=== PATIENT | female | born 1940 | race Caucasian/White ===

== ENCOUNTER 2019-03-30 12:01 | Emergency (ER) | payer OTHER ==
[2019-03-30] MEDS ORDERED: DIAZEPAM 2 MG TABLET ONE (13:02)
[2019-03-30] MEDS ORDERED: NA CHLORIDE 0.9% 1,000 ML ONE (13:02)
--- NOTE | 2019-03-30 13:03 | RAD REPORT ---
EXAM DESCRIPTION: CT - CTHCSPWOC - 03/30/2019 12:49 pm CLINICAL HISTORY: Fall, head and neck trauma COMPARISON: None. TECHNIQUE: Axial 5 mm thick images of the head were obtained. Axial 2 mm thick images of the cervic al spine were obtained with sagittal and coronal reconstruction images generated and reviewed. All CT scans are performed using dose optimization technique as appropriate and may include automated exposure control or mA/KV adjustment according to patient size. FINDINGS: No intracranial hemorrhage, mass, edema or acute intracranial finding. No suspicion for acute infarct ion. No extra-axial fluid collections. Mastoid air cells and paranasal sinuses are clear. No globe or orbit abnormality seen. Mild atrophy and chronic ischemic changes are present. Ventricles are normal . Cervical body height and alignment are normal. Significant C4-5 and mild C5-6 disc space narrowing pr esent. Bony foraminal encroachment present at C4-5 and C5-6. 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 No fracture or acute bony abnormality. Central canal det ail is inherently limited. No paraspinal mass or hematoma. Degenerative changes are present at each TM joint. No foreign body s een in the soft tissues. IMPRESSION: Mild atrophy and chronic ischemic change with no acute intracranial finding. Cervical spine degenerative change with no acute finding. Negative CT cervical spine examination for acute or significant finding.
[2019-03-30 13:24] LABS: Absolute Lymphocytes (CBC) 0.8 K/uL (0.7-4.9); Basophils % 0.5 % (0-1.3); Hematocrit 43.6 % (36.0-45.0); Lymphocytes % 18.8 % (15.3-44.8); MPV 7.8 fL (7.6-11.3); RBC Red Blood Cell Count 5.08 M/uL (3.86-4.86)
[2019-03-30 13:30] LABS: Protime INR 1.04
[2019-03-30 13:42] LABS: ALT/SGPT 19 U/L (12-78); AST/SGOT 20 U/L (15-37); Albumin 3.4 g/dL (3.4-5.0); Alkaline Phosphatase 84 U/L (45-117); BUN Blood Urea Nitrogen 10 mg/dL (7-18); Bicarbonate 29 mmol/L (21-32); Bilirubin Direct 0.1 mg/dL (0-0.2); Bilirubin Total 0.3 mg/dL (0.2-1.0); Glucose Level 108 mg/dL (74-106); Magnesium 2.1 mg/dL (1.8-2.4); NT PRO-BNP 124 pg/mL (<450); Potassium 3.9 mmol/L (3.5-5.1); Protein, Total 6.9 g/dL (6.4-8.2); Sodium Level 141 mmol/L (136-145); Troponin (Emerg Dept Use Only) < 0.02 ng/mL (0.0-0.045)
--- NOTE | 2019-03-30 14:11 | RAD REPORT ---
EXAM DESCRIPTION: RAD - Chest Single View - 03/30/2019 12:45 pm CLINICAL HISTORY: Dizziness, cough, shortness of breath COMPARISON: January 2012 TECHNIQUE: AP portable chest image was obtained 1242 hours . FINDINGS: Chronic interstitial lung disease is present. This is increased in prominence from the com parison. This could be interstitial edema, infiltrate, progressive fibrosis or a combination. Patchy left base opacification is present with a suspected small left pleural effusion. Heart and vasculatur e are normal. No pneumothorax. No acute bony abnormality seen. No acute aortic finding. Densely calci fied breast implant capsules are noted. IMPRESSION: Increased interstitial opacification compared to 2012. This could be progressive fibrosi s, interstitial edema or possibly a mild interstitial infiltrate. Focally more prominent left base opacification and suspected small left pleural effusion.
[2019-03-30] MEDS ORDERED: TETANUS & DIPHTHERIA TOX,ADULT 0.5 ML VIAL ONE (14:33)
--- NOTE | 2019-03-30 14:33 | ER ---
Nurse's Notes [facility] Name: Josselin Martinez Age: 78 yrs Sex: Female : 1940 Arrival Date: 03/30/2019 Time: 12:05 Bed 14 Private MD: None, None Diagnosis: Benign paroxysmal vertigo;Abrasion of scalp;Fall on same level from slipping, tripping and stumbling;Superficial injury of head;Otalgia Presentation: 03/30 12:05 Presenting complaint: Patient states: Last Monday was dizzy and was dx with double ear jl7 infection at [facility]; slipped 2 days and hit head on the ground and reports a metal antoine punctured the right side of scalp, denies LOC, pt states "I cleaned the blood up, put ice on it and went back to work." Small punture injury noted to right side of scalp. Pt states "None of the medications given from [facility] are working, I still feel bad." Reports cough and sore throat and mild dizziness. Transition of care: patient was not received from another setting of care. Onset of symptoms was March 25, 2019. Risk Assessment: Do you want to hurt yourself or someone else? Patient reports no desire to harm self or others. Initial Sepsis Screen: Does the patient meet any 2 criteria? No. Patient's initial sepsis screen is negative. Does the patient have a suspected source of infection? No. Patient's initial sepsis screen is negative. Care prior to arrival: None. 12:05 Method Of Arrival: Ambulatory jl7 12:05 Acuity: CASIE 3 jl7 Triage Assessment: 12:15 General: Appears in no apparent distress. uncomfortable, Behavior is calm, cooperative, jl7 appropriate for age. Pain: Complains of pain in throat Pain currently is 8 out of 10 on a pain scale. Historical: - Allergies: 12:15 Codeine; jl7 - Home Meds: 12:15 None [Active]; jl7 - PMHx: 12:15 None; jl7 - PSHx: 12:15 Hernia repair; Bladder suspension; breast implants; Hysterectomy; jl7 - Immunization history:: Adult Immunizations unknown, Last tetanus immunization: unknown, Pneumococcal vaccine is up to date, Flu vaccine is up to date. - Social history:: Smoking status: Patient/guardian denies using tobacco. - Ebola Screening: : No symptoms or risks identified at this time. Screenin:15 Abuse screen: Denies threats or abuse. Denies injuries from another. Nutritional bp screening: No deficits noted. Tuberculosis screening: No symptoms or risk factors identified. Fall Risk None identified. Assessment: 12:15 General: SEE TRIAGE NOTE. bp 13:15 Reassessment: ALL CURRENT ORDERS COMPLETED, RESULTS PENDING. bp Vital Signs: 12:15 BP 127 / 67; Pulse 107; Resp 19 S; Temp 99.1(O); Pulse Ox 95% on R/A; Weight 49.9 kg jl7 (R); Height 5 ft. (152.40 cm) (R); Pain 8/10; 13:15 BP 124 / 68; Pulse 99; Resp 16; Pulse Ox 97% ; bp 14:39 BP 125 / 73; Pulse 99; Resp 17; Temp 98; Pulse Ox 99% ; bp 12:15 Body Mass Index 21.48 (49.90 kg, 152.40 cm) jl7 ED Course: 12:05 Patient arrived in ED. mr 12:05 None, None is Private Physician. mr 12:13 Magdi Fisher, ZOILA is PHCP. pm1 12:13 Tre Maya MD is Attending Physician. pm1 12:15 Triage completed. jl7 12:15 Arm band placed on right wrist. jl7 12:15 Patient has correct armband on for positive identification. Bed in low position. Call bp light in reach. Side rails up X2. Adult w/ patient. 12:18 Reji Russ, RN is Primary Nurse. bp 12:40 XRAY Chest (1 view) Sent. bp 12:43 XRAY Chest (1 view) In Process Unspecified. EDMS 12:46 CT completed. Patient tolerated procedure well. Patient moved back from CT. bq 12:50 CT Head C Spine In Process Unspecified. EDMS 13:10 Inserted saline lock: 22 gauge in right forearm, using aseptic technique. Blood bp collected. 14:50 No provider procedures requiring assistance completed. IV discontinued, intact, bp bleeding controlled, No redness/swelling at site. Pressure dressing applied. 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 Exp: bp 04/11/2021. Lot #: [id number]. } Route: IM; Site: right deltoid; 14:35 Follow up: Response: No adverse reaction bp Intake: 14:36 IV: 1000ml; Total: 1000ml. bp Outcome: 14:32 Discharge ordered by MD. pm1 14:50 Discharged to home ambulatory, with family. bp 14:50 Condition: stable 14:50 Discharge instructions given to patient, family, Instructed on discharge instructions, follow up and referral plans. medication usage, Demonstrated understanding of instructions, follow-up care, medications, Prescriptions given X 1. 14:51 Patient left the ED. bp Signatures: Dispatcher [employer] EDHI Maria Victoria Corona Betty bq Marinas, Patrick, ZOILA RESTAURANT FRONT MANAGER pm1 Mary Lou Domingo, JUDY RN jl7 Reji Russ RN RN bp
--- NOTE | 2019-03-30 14:34 | EDPHYS ---
Physician Documentation [facility] Name: Josselin Martinez Age: 78 yrs Sex: Female : 1940 Arrival Date: 03/30/2019 Time: 12:05 Bed 14 Private MD: None, None ED Physician Tre Maya HPI: 03/30 12:49 This 78 yrs old Female presents to ER via Ambulatory with complaints of Fall pm1 Injury, Head Injury-Adult, Ear Pain, Sore Throat. 12:49 Patient was seen at [place] [facility] on 03/24 with bilateral ear pain, sore throat and pm1 dizziness. Was diagnosed with bilateral ER infection and vertigo. Prescribed Augmentin, meclizine, and zofran. 12:49 Details of fall: The patient fell from an upright position, while standing, and struck pm1 the metal cage of the propane tank container. occurred 2 days ago and resulted in abrasion to the top of her scalp on the right side. Patient without LOC, headache, neck pain. Patient reports she fell due to dizziness from vertigo. her vertigo, sensation of spinning has improved with meclizine, but has not resolved completely. . Historical: - Allergies: 12:15 Codeine; jl7 - Home Meds: 12:15 None [Active]; jl7 - PMHx: 12:15 None; jl7 - PSHx: 12:15 Hernia repair; Bladder suspension; breast implants; Hysterectomy; jl7 - Immunization history:: Adult Immunizations unknown, Last tetanus immunization: unknown, Pneumococcal vaccine is up to date, Flu vaccine is up to date. - Social history:: Smoking status: Patient/guardian denies using tobacco. - Ebola Screening: : No symptoms or risks identified at this time. ROS: 12:49 Constitutional: Negative for fever, chills, and weight loss, Eyes: Negative for injury, pm1 pain, redness, and discharge, Neck: Negative for injury, pain, and swelling, Cardiovascular: Negative for chest pain, palpitations, and edema. 12:49 Respiratory: Negative for shortness of breath, cough, wheezing, and pleuritic chest pain, Abdomen/GI: Negative for abdominal pain, nausea, vomiting, diarrhea, and constipation. 12:49 Back: Negative for injury and pain, MS/Extremity: Negative for injury and deformity, Skin: Negative for injury, rash, and discoloration, Neuro: Negative for headache, weakness, numbness, tingling, and seizure. 12:49 ENT: Positive for ear pain, sore throat, sinus drainage and post nasal drip, Negative for drainage from ear(s), difficulty swallowing, difficulty handling secretions. 12:49 Neuro: Positive for dizziness. Exam: 12:49 Constitutional: This is a well developed, well nourished patient who is awake, alert, pm1 and in no acute distress. Eyes: Pupils equal round and reactive to light, extra-ocular motions intact. Lids and lashes normal. Conjunctiva and sclera are non-icteric and not injected. Cornea within normal limits. Periorbital areas with no swelling, redness, or edema. ENT: Nares patent. No nasal discharge, no septal abnormalities noted. Tympanic membranes are normal and external auditory canals are clear. Oropharynx with no redness, swelling, or masses, exudates, or evidence of obstruction, uvula midline. Mucous membranes moist. Neck: Trachea midline, no thyromegaly or masses palpated, and no cervical lymphadenopathy. Supple, full range of motion without nuchal rigidity, or vertebral point tenderness. No Meningismus. Chest/axilla: Normal chest wall appearance and motion. Nontender with no deformity. No lesions are appreciated. 12:49 Cardiovascular: Regular rate and rhythm with a normal S1 and S2. No gallops, murmurs, or rubs. Normal PMI, no JVD. No pulse deficits. Respiratory: Lungs have equal breath sounds bilaterally, clear to auscultation and percussion. No rales, rhonchi or wheezes noted. No increased work of breathing, no retractions or nasal flaring. Abdomen/GI: Soft, non-tender, with normal bowel sounds. No distension or tympany. No guarding or rebound. No evidence of tenderness throughout. Back: No spinal tenderness. No costovertebral tenderness. Full range of motion. Skin: Warm, dry with normal turgor. Normal color with no rashes, no lesions, and no evidence of cellulitis. MS/ Extremity: Pulses equal, no cyanosis. Neurovascular intact. Full, normal range of motion. 12:49 Head/face: Noted is no obvious of injury or deformity except abrasion(s), of the small abrasion to scalp on the top of her head. 12:49 Neuro: Orientation: is normal, Motor: is normal, moves all fours, Sensation: is normal, no obvious gross deficits. Vital Signs: 12:15 BP 127 / 67; Pulse 107; Resp 19 S; Temp 99.1(O); Pulse Ox 95% on R/A; Weight 49.9 kg jl7 (R); Height 5 ft. (152.40 cm) (R); Pain 8/10; 13:15 BP 124 / 68; Pulse 99; Resp 16; Pulse Ox 97% ; bp 14:39 BP 125 / 73; Pulse 99; Resp 17; Temp 98; Pulse Ox 99% ; bp 12:15 Body Mass Index 21.48 (49.90 kg, 152.40 cm) jl7 MDM: 12:22 Patient medically screened. ly 14:14 Data reviewed: vital signs. Data interpreted: Pulse oximetry: on room air is 97 %. pm1 Interpretation: normal. 14:30 Counseling: I had a detailed discussion with the patient and/or guardian regarding: the pm1 historical points, exam findings, and any diagnostic results supporting the discharge/admit diagnosis, lab results, radiology results, the need for outpatient follow up, to return to the emergency department if symptoms worsen or persist or if there are any questions or concerns that arise at home. 14:30 ED course: Patient feeling better with Valium for her vertigo. Will discharge to home pm1 with a prescription. Advised to continue taking Augmentin as directed and Meclizine and Zofran PRN. 03/30 12:34 Order name: Basic Metabolic Panel; Complete Time: 13:46 pm03/30 12:34 Order name: CBC with Diff; Complete Time: 13:29 pm03/30 12:34 Order name: LFT's; Complete Time: 13:46 pm03/30 12:34 Order name: Magnesium; Complete Time: 13:46 pm03/30 12:34 Order name: NT PRO-BNP; Complete Time: 13:46 pm03/30 12:34 Order name: PT-INR; Complete Time: 13:46 pm1 03/30 12:34 Order name: CT Head C Spine; Complete Time: 13:05 pm03/30 12:34 Order name: Troponin (emerg Dept Use Only); Complete Time: 13:46 pm1 03/30 12:34 Order name: XRAY Chest (1 view); Complete Time: 14:12 pm1 03/30 12:34 Order name: EKG; Complete Time: 12:35 pm1 03/30 12:34 Order name: Cardiac monitoring; Complete Time: 12:41 pm1 03/30 12:34 Order name: EKG - Nurse/Tech; Complete Time: 13:22 pm1 03/30 12:34 Order name: IV Saline Lock; Complete Time: 13:17 pm1 03/30 12:34 Order name: Labs collected and sent; Complete Time: 13:17 pm1 03/30 12:34 Order name: O2 Per Protocol; Complete Time: 12:41 pm1 03/30 12:34 Order name: O2 Sat Monitoring; Complete Time: 12:41 pm1 Administered Medications: 12:45 Drug: Valium 2 mg Route: PO; bp 13:48 Follow up: Response: Marked relief of symptoms bp 13:10 Drug: NS 0.9% 1000 ml Route: IV; Rate: 1000 ml; Site: right forearm; bp 14:36 Follow up: IV Status: Completed infusion; IV Intake: 1000ml bp 14:00 Drug: Tetanus-Diphtheria Toxoid Adult 0.5 ml {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 Exp: bp 04/11/2021. Lot #: [id number]. } Route: IM; Site: right deltoid; 14:35 Follow up: Response: No adverse reaction bp Disposition: 03/30/19 14:32 Discharged to Home. Impression: Benign paroxysmal vertigo, Abrasion of scalp, Fall on same level from slipping, tripping and stumbling, Superficial injury of head, Otalgia. - Condition is Stable. - Discharge Instructions: Abrasion, Benign Positional Vertigo, Head Injury, Adult, Fall Prevention in the Home. - Prescriptions for Valium 2 mg Oral Tablet - take 1 tablet by ORAL route every 8 hours As needed; 20 tablet. - Medication Reconciliation Form, Thank You Letter, Antibiotic Education, Prescription Opioid Use form. - Follow up: Emergency Department; When: As needed; Reason: Worsening of condition. Follow up: Private Physician; When: 2 - 3 days; Reason: Recheck today's complaints, Continuance of care, Re-evaluation by your physician. - Problem is new. - Symptoms have improved. Addendum: 04/01/2019 09:27 Co-signature as Attending Physician, Tre Maya MD I agree with the assessment and c martin plan of care. Signatures: Dispatcher [employer] EDMS Tre Maya MD MD cha Marinas, Patrick, CERTIFIED NEURODIAGNOSTIC TECHNOLOGIST CERTIFIED NEURODIAGNOSTIC TECHNOLOGIST pm1 Mary Lou Domingo, RN RN jl7 Reji Russ RN RN bp Corrections: (The following items were deleted from the chart) 03/30 14:51 14:32 03/30/2019 14:32 Discharged to Home. Impression: Benign paroxysmal vertigo; bp Abrasion of scalp; Fall on same level from slipping, tripping and stumbling; Superficial injury of head; Otalgia. Condition is Stable. Forms are Medication Reconciliation Form, Thank You Letter, Antibiotic Education, Prescription Opioid Use. Follow up: Emergency Department; When: As needed; Reason: Worsening of condition. Follow up: Private Physician; When: 2 - 3 days; Reason: Recheck today's complaints, Continuance of care, Re-evaluation by your physician. Problem is new. Symptoms have improved. pm1
[2019-03-30 15:01] VITALS: BP 125/73; TEMP 98; O2SAT 99
--- NOTE | 2019-04-02 16:45 | EKG ---
Test Date: 2018-03-30 Test Time: 13:27:01 Biotechnologist: JASS MEASUREMENT RESULTS: Intervals: Rate: 88 IA: 126 QRSD: 78 QT: 330 QTc: 399 [place]: P: 52 IA: 126 QRS: 1 T: 46 INTERPRETIVE STATEMENTS: Normal sinus rhythm Normal ECG Cardioserver Error - Incorrect date on EKG This EKG was performed on 03-30-2019 Compared to ECG 11/19/2014 17:46:12 No significant changes Electronically Signed On 04-02-19 16:41:47 PROGRAM SERVICES PLANNER by Jerrod Chacko
== END 2019-03-30 14:51 | disposition home or self-care (01) ==
LOC: ER 12:01
DX: S00.90XA Unspecified superficial injury of unspecified part of head, initial encounter (principal); S00.01XA Abrasion of scalp, initial encounter; H81.10 Benign paroxysmal vertigo, unspecified ear; H92.09 Otalgia, unspecified ear; W01.198A Fall on same level from slipping, tripping and stumbling with subsequent striking against other object, initial encounter; Y93.9 Activity, unspecified
CPT/HCPCS: 93005; 85025; 80048; 36415; 83735; 85610; 80076; 84484; 83880; 70450; 72125; 71045; 90471; 90714; 96360; 99284; J7030

== ENCOUNTER 2024-06-19 19:29 | Emergency (ER) | payer OTHER ==
--- OUTSIDE RECORDS SUMMARY | 2024-06-19 19:33 | XMS REPORT | Continuity of Care Document ---
Author Name Unknown Address [address] [place] [address] [facility] [place] Address [address] [place] [address] Care Team Providers Care Maritime Officer Name Role Phone BRENDA STANLEY Primary Care Physician Unavailab le RADIOLOGY Attending Clinician Unavailable Radiology Attending Clinician Unavailable Doctor Unassigned, [place] Attending Clinician U Nura Son MD Attending Clinician [phone] NURA CAPONE Attending Clinician UnavailZULEMA Garcia Admitting Clinician Unavailadeel e Payers Payer Name Policy Type Policy Number Effective Date Expirati on Date Source [facility] [id number] 2019 00:00:00 Allergies, Adverse Reactions, Alerts Allergy Name Allergy Type Status Severity Reaction(s) Onset Date Inactive Date Treating Clinician Comments Source CODEINE DRUG INGREDI Active N/V 2019-03 00:00: 00 [facility] Codeine Propensi ty to adverse reaction s Active Nausea and/or Vomiting 2019-03 00:00: 00 [facility] NO KNOWN ALLERGIE S Drug Class Active [facility] Social History Social Habit Start Date Stop Date Quantity Comments Source Gender identity [facility] Exposure to SARS-CoV-2 (event) Not sure [facility] Sex Assigned At 1940 00:00:00 1940 00:00:00 [facility] Smoking Status Start Date Stop Date Source Tobacco smoking consumption unknown [facility] Medications Ordered Medication Name Filled Medication Name Start Date Stop Date Current Medication? Ordering Clinician Indication Dosage Frequency Signature (SIG) Comments Components Source No known medications No Un neena [facility] No known medications No Un neena [facility] No known medications No Un neena [facility] No known medications [facility] known medications No Un neena [facility] Vital Signs Vital Name Observation Time Observation Value Comments S ource Systolic blood pressure 2020-03-09 19:37:00 127 mm[Hg] [facility] Diastolic blood pressure 2020-03-09 19:37:00 77 mm[Hg] [facility] Respiratory rate 2020-03-09 19:37:00 18 /min [facility] Body height 2020-03-09 19:37:00 152.4 cm [facility] Body weight 2020-03-09 19:37:00 54.432 kg [facility] BMI 2020-03-09 19:37:00 23.44 kg/m2 [facility] Systolic blood pressure 2020-03-09 19:37:00 127 mm[Hg] [facility] Diastolic blood pressure 2020-03-09 19:37:00 77 mm[Hg] [facility] Respiratory rate 2020-03-09 19:37:00 18 /min [facility] Body height 2020-03-09 19:37:00 152.4 cm [facility] Body weight 2020-03-09 19:37:00 54.432 kg [facility] BMI 2020-03-09 19:37:00 23.44 kg/m2 [facility] Procedures Procedure Date / Time Performed Performing Clinicia n Source DEXA AXIAL (HIP AND SPINE) 2022-11-07 14:43:00 Zulema Gao [facility] CONSENT/REFUSAL FOR DIAGNOSIS AND TREATMENT 2022-11-04 13:43:46 Doctor Unassigned, [place] [facility] ASSIGNMENT OF BENEFITS 2022-11-04 13:43:22 Docto r Unassigned, [place] [facility] REFERRAL- REQUEST/RESPONSE 2020-05-26 06:01:00 Doctor Unassigned, [place] [facility] REFERRAL- REQUEST/RESPONSE 2020-04-21 06:01:00 Doctor Unassigned, [place] [facility] REFERRAL- REQUEST/RESPONSE 2020-03-17 06:01:00 Doctor Unassigned, [place] [facility] XR SHOULDER 2+ VW RIGHT 2020-03-09 18:51:37 Nura Capone [facility] ASSIGNMENT OF BENEFITS 2020-03-09 18:34:55 Docto r Unassigned, [place] [facility] Encounters Start Date/Time End Date/Time Encounter Type Admission Type Attending [facility] Care Department Encounter ID Source 2022-11-07 08:48:13 2022-11-07 23:59:00 Outpatient R RADIOLOGY [facility] [id number] [facility] 2022-11-07 08:30:00 2022-11-07 23:59:00 Hospital Encounter Radiology [facility] [id number] 350.1.13.10 4.2.7.2.686 [id number] [facility] 2022-11-07 00:00:00 2022-11-07 00:00:00 Letter (Out) Doctor Unassigned, [place] [facility] 1.2.840.114 350.1.13.10 4.2.7.2.686 [id number] [facility] 2022-11-04 00:00:00 2022-11-04 00:00:00 Orders Only Doctor Unassigned, [place] [facility] 1.2.840.114 350.1.13.10 4.2.7.2.686 [id number] [facility] 2020-05-26 00:00:00 2020-05-26 00:00:00 Orders Only Doctor Unassigned, [place] [facility] 1.2.840.114 350.1.13.10 4.2.7.2.686 [id number] [facility] 2020-04-21 00:00:00 2020-04-21 00:00:00 Orders Only Doctor Unassigned, [place] [facility] 1.2.840.114 350.1.13.10 4.2.7.2.686 [id number] [facility] 2020-04-21 00:00:00 2020-04-21 00:00:00 Orders Only Doctor Unassigned, [place] [facility] 1.2.840.114 350.1.13.10 4.2.7.2.686 [id number] 2020-03-17 00:00:00 2020-03-17 00:00:00 Orders Only Doctor Unassigned, [place] [facility] 1.2.840.114 350.1.13.10 4.2.7.2.686 [id number] [facility] 2020-03-09 12:36:22 2020-03-09 23:59:00 Hospital Encounter Nura Capone [facility] 1.2.840.114 350.1.13.10 4.2.7.2.686 [id number] [facility] 2020-03-09 12:36:22 2020-03-09 23:59:00 Hospital Encounter Nura Capone [facility] 1.2.840.114 350.1.13.10 4.2.7.2.686 [id number] 2020-03-09 13:33:57 2020-03-09 14:09:26 Office Visit Capone Nura Muñiz [facility] 1.2.840.114 350.1.13.10 4.2.7.2.686 [id number] [facility] 2020-03-09 13:33:57 2020-03-09 14:09:26 Office Visit Estelita Nura Muñiz [facility] 1.2.840.114 350.1.13.10 4.2.7.2.686 [id number] 2020-03-09 00:00:00 2020-03-09 00:00:00 Outpatient R NURA CAPONE [facility] [id number] [facility] 2020-03-09 00:00:00 2020-03-09 00:00:00 Orders Only Doctor Unassigned, [place] [facility] 1.2.840.114 350.1.13.10 4.2.7.2.686 [id number] [facility] Results Test Description Test Time Test Comments Results Resul t Comments Source XR SHOULDER 2+ VW RIGHT 2020-02-25 4 19:12:39 1. ?No fracture. RL: 1105 HISTORY: ?Right shoulder pain COMPARISON: ?None. FINDINGS: 3 views of the right shoulder demonstrate normal alignment. ?No fracture,foreign body, or focal osseous lesion is identified. [facility], Radiant Results Inft User - 03/09/2020 1:13 PM CSTHISTORY: Right shoulder pain COMPARISON: None.FINDINGS:3 views of the right shoulder demonstrate normal alignment. No fracture,foreign body, or focal osseous lesion is identified.IMPRESSI ON1. No fracture.RL: 1105 [facility]
[2024-06-19] MEDS ORDERED: dexAMETHasone 10 MG/ML VIAL ONE (20:50)
[2024-06-19] MEDS ORDERED: DIPHENHYDRAMINE 50 MG/ML VIAL ONE (20:50)
[2024-06-19] MEDS ORDERED: METOCLOPRAMIDE 10 MG/2mL INJ ONE (20:50)
[2024-06-19] MEDS ORDERED: NA CHLORIDE 0.9% 1,000 ML ONE (20:51)
--- NOTE | 2024-06-19 21:24 | RAD REPORT ---
EXAM: CT brain without contrast HISTORY: Headache COMPARISON: 2019 TECHNIQUE: Multiple contiguous axial images were obtained and a CT of the brain without contrast.. Sagittal and coronal reconstruction performed. Automated exposure control, adjustment of the mA and/or kV according to patient size, and/or iterative reconstruction. Unless otherwise specified, incidental f indings do not require dedicated imaging follow-up FINDINGS: An intracranial bleed is not seen Ventricles are normal caliber No extra-axial fluid collection noted No significant hypodensity within the brain No fluid within the visualized sinuses or mastoids noted. IMPRESSION: No acute intracranial abnormality noted. If the patient continues to have symptoms to suggest an acute intracranial abnormality then MRI of th e brain would be recommended.
[2024-06-19] MEDS ORDERED: KETOROLAC 30 MG/ML INJ ONE (23:01)
--- NOTE | 2024-06-19 23:47 | ER ---
Nurse's Notes [facility] Name: Josselin Martinez Age: 83 yrs Sex: Female : 1940 Arrival Date: 06/19/2024 Time: 19:29 Bed 15 Private MD: Diagnosis: Migraine without aura, not intractable Presentation: 06/19 20:09 Chief complaint: Patient states: headache for past month, hx of migraines. Coronavirus iw screen: At this time, the client does not indicate any symptoms associated with coronavirus-19. Ebola Screen: No symptoms or risks identified at this time. Initial Sepsis Screen: Does the patient meet any 2 criteria? No. Patient's initial sepsis screen is negative. Does the patient have a suspected source of infection? No. Patient's initial sepsis screen is negative. Risk Assessment: Do you want to hurt yourself or someone else? Patient reports no desire to harm self or others. Onset of symptoms was April 2024. 20:09 Method Of Arrival: Ambulatory iw 20:09 Acuity: CASIE 3 iw Historical: - Allergies: 20:09 Codeine; iw - Home Meds: 20:11 None [Active]; iw - PMHx: 20:10 Migraine; iw - PSHx: 20:10 hysterectomy; iw - Immunization history:: Adult Immunizations up to date. - Infectious Disease History:: Denies. - Social history:: Smoking status: Patient/guardian denies using tobacco, but has a distant history of tobacco abuse, Patient uses alcohol, but reports only rare drinking. Screenin:15 [facility] ED Fall Risk Assessment (Adult) History of falling in the last 3 months, br2 including since admission No falls in past 3 months (0 pts) Confusion or Disorientation No (0 pts) Intoxicated or Sedated No (0 pts) Impaired Gait No (0 pts) Mobility Assist Device Used No (0 pt) Altered Elimination No (0 pt) Score/Fall Risk Level 0 - 2 = Low Risk Oriented to surroundings. Abuse screen: Denies threats or abuse. Denies injuries from another. Nutritional screening: No deficits noted. Tuberculosis screening: No symptoms or risk factors identified. Assessment: 20:15 Reassessment: Patient and/or family updated on plan of care and expected duration. Pain br2 level reassessed. Patient is alert, oriented x 3, equal unlabored respirations, skin warm/dry/pink. General: Appears uncomfortable, Behavior is calm, cooperative. Pain: Complains of pain in base of the skull, left temporal area, left occipital area and left base of the skull. Neuro: Level of Consciousness is awake, alert, obeys commands, Oriented to person, place, time, situation, Reports dizziness, headache. Cardiovascular: Denies chest pain, Capillary refill < 3 seconds. Respiratory: Airway is patent Respiratory effort is even, unlabored, Respiratory pattern is regular, symmetrical. GI: No signs and/or symptoms were reported involving the gastrointestinal system. : No signs and/or symptoms were reported regarding the genitourinary system. EENT: No signs and/or symptoms were reported regarding the EENT system. Derm: No signs and/or symptoms reported regarding the dermatologic system. Musculoskeletal: No signs and/or symptoms reported regarding the musculoskeletal system. 22:15 Reassessment: Patient and/or family updated on plan of care and expected duration. Pain br2 level reassessed. Patient is alert, oriented x 3, equal unlabored respirations, skin warm/dry/pink. Patient states symptoms have improved. Vital Signs: 20:09 BP 164 / 96; Pulse 82; Resp 16; Temp 98.2; Pulse Ox 95% on R/A; iw 21:58 BP 117 / 76; Pulse 87; Resp 18 S; Pulse Ox 99% on R/A; Pain 5/10; br2 21:58 Pain Scale: Adult br2 ED Course: 19:34 Patient arrived in ED. jj6 20:00 Janet Ivory MD is Attending Physician. sw6 20:10 Triage completed. iw 20:12 Arm band placed on. iw 20:15 Allergy band placed. Placed in gown. Bed in low position. Call light in reach. Provided br2 Education on: PLAN OF CARE. 21:04 CT Head Brain wo Cont In Process Unspecified. EDMS 21:23 Inserted saline lock: 24 gauge in left antecubital area, using aseptic technique. kmf Flushed with 10 mL NS. 21:54 Sweta Mukherjee, RN is Primary Nurse. br2 06/20 00:02 IV discontinued, intact, bleeding controlled, No redness/swelling at site. Pressure br2 dressing applied. 00:02 No provider procedures requiring assistance completed. br2 Administered Medications: 06/19 21:37 Drug: metoCLOPramide IVP 10 mg IVP once; over 1 to 2 minutes Route: IVP; Site: left br2 antecubital; 22:00 Follow up: Response: No adverse reaction br2 21:37 Drug: diphenhydrAMINE IVP 12.5 mg IVP once Route: IVP; Site: left antecubital; br2 22:00 Follow up: Response: No adverse reaction br2 21:37 Drug: Decadron - Dexamethasone IVP 10 mg IVP once Route: IVP; Site: left antecubital; br2 22:00 Follow up: Response: No adverse reaction br2 21:37 Drug: NS 0.9% IV 1000 ml IV at 1 bolus Per protocol; to be given as a bolus over 60 br2 minutes Route: IV; Rate: 1 bolus; Site: left antecubital; 23:00 Follow up: Response: No adverse reaction; IV Status: Completed infusion; IV Intake: br2 1000ml 23:03 Drug: Ketorolac IVP 15 mg IVP once Route: IVP; Site: left antecubital; br2 23:30 Follow up: Response: No adverse reaction; Pain is decreased br2 Medication: 20:15 VIS not applicable for this client. br2 Intake: 23:00 IV: 1000ml; Total: 1000ml. br2 Outcome: 23:47 Discharge ordered by . sw6 06/20 00:02 Discharged to home ambulatory, br2 Condition: good Discharge instructions given to patient, Instructed on discharge instructions, follow up and referral plans. Demonstrated understanding of instructions, follow-up care, 00:02 Patient left the ED. br2 Signatures: Dispatcher [employer] Milly Tracey RN RN Mildred Morris jj6 Sonja Vera [facility] Janet Ivory MD MD sw Sweta Mukherjee RN RN br2 Corrections: (The following items were deleted from the chart) 00:19 00:18 Patient left the ED. br2 br2
--- NOTE | 2024-06-19 23:48 | EDPHYS ---
Physician Documentation [facility] Name: Josselin Martinez Age: 83 yrs Sex: Female : 1940 Arrival Date: 06/19/2024 Time: 19:29 Bed 15 Private MD: ED Physician Janet Ivory HPI: 06/19 20:16 This 83 yrs old Female presents to ER via Ambulatory with complaints of sw6 Headache, Dizziness. 20:16 The patient complains of pain to the left temporal area. Onset: The symptoms/episode sw6 began/occurred 1 month(s) ago. Associated signs and symptoms: Pertinent positives: nausea, Photophobia Pertinent negatives: fever, neck stiffness, vision changes, weakness. Headache History: The patient has had previous headaches and this one is similar to previous episodes. The symptoms are alleviated by nothing. the symptoms are aggravated by lights. The patient has experienced similar episodes in the past, multiple times. the patient presents c/o left sided NAIK x one month. 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 occasional nausea but none today. lights do bother her headache. no blurry vision. no fevers. no neck pain. she had BC powder yesterday but it did not help with her NAIK. no weakness to arms/legs. she reports a h/o migraine headache her entire life. no cp or sob. no n/v. no cough or congestion. no h/o htn, dm or lipids. no meds for sx today. here for eval.. Historical: - Allergies: 20:09 Codeine; iw - Home Meds: 20:11 None [Active]; iw - PMHx: 20:10 Migraine; iw - PSHx: 20:10 hysterectomy; iw - Immunization history:: Adult Immunizations up to date. - Infectious Disease History:: Denies. - Social history:: Smoking status: Patient/guardian denies using tobacco, but has a distant history of tobacco abuse, Patient uses alcohol, but reports only rare drinking. ROS: 20:16 Constitutional: Negative for fever, chills, and weight loss, Cardiovascular: Negative sw6 for chest pain, palpitations, and edema, Respiratory: Negative for shortness of breath, cough, wheezing, and pleuritic chest pain, Abdomen/GI: Negative for abdominal pain, nausea, vomiting, diarrhea, and constipation, MS/Extremity: Negative for injury and deformity, Neuro: Negative for headache, weakness, numbness, tingling, and seizure, 20:16 Neuro: Positive for headache, 20:16 All other systems are negative, Exam: 20:16 Constitutional: This is a well developed, well nourished patient who is awake, alert, sw6 and in no acute distress. Neck: Trachea midline, no thyromegaly or masses palpated, and no cervical lymphadenopathy. Supple, full range of motion without nuchal rigidity, or vertebral point tenderness. No Meningismus. Cardiovascular: Regular rate and rhythm with a normal S1 and S2. No gallops, murmurs, or rubs. Normal PMI, no JVD. No pulse deficits. Respiratory: Lungs have equal breath sounds bilaterally, clear to auscultation and percussion. No rales, rhonchi or wheezes noted. No increased work of breathing, no retractions or nasal flaring. Abdomen/GI: Soft, non-tender, with normal bowel sounds. No distension or tympany. No guarding or rebound. No evidence of tenderness throughout. 20:16 Neuro: speech is clear. no facial asymetry. 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 MS 5/5 to UE b/l. steady gait. , 20:43 MS/ Extremity: Pulses equal, no cyanosis. Neurovascular intact. Full, normal range sw6 of motion. Neuro: Awake and alert, GCS 15, oriented to person, place, time, and situation. Cranial nerves II-XII grossly intact. Motor strength 5/5 in all extremities. Sensory grossly intact. Cerebellar exam normal. Normal gait. Vital Signs: 20:09 BP 164 / 96; Pulse 82; Resp 16; Temp 98.2; Pulse Ox 95% on R/A; iw 21:58 BP 117 / 76; Pulse 87; Resp 18 S; Pulse Ox 99% on R/A; Pain 5/10; br2 21:58 Pain Scale: Adult br2 MDM: 20:15 Medical Screening Exam initiated sw 20:16 Differential diagnosis: migraine, sinusitis, subarachnoid bleed, subdural hematoma, sw6 tension headache, traumatic injuries. Data reviewed: vital signs, nurses notes. 23:46 Data reviewed: radiologic studies, CT scan. ED course: The patient is doing well here sw6 in the ER. Her headache has resolved after administration of medications listed above. The CT of her head shows no acute intracranial abnormalities. She remained stable here in the ER and is okay for discharge home with PCP follow-up.. 06/19 20:16 Order name: CT Head Brain wo Cont; Complete Time: 21:25 sw6 06/19 21:26 Interpretation: No acute disease. 6 06/19 20:16 Order name: IV Saline Lock; Complete Time: 21:37 6 Administered Medications: 21:37 Drug: metoCLOPramide IVP 10 mg IVP once; over 1 to 2 minutes Route: IVP; Site: left br2 antecubital; 22:00 Follow up: Response: No adverse reaction br2 21:37 Drug: diphenhydrAMINE IVP 12.5 mg IVP once Route: IVP; Site: left antecubital; br2 22:00 Follow up: Response: No adverse reaction br2 21:37 Drug: Decadron - Dexamethasone IVP 10 mg IVP once Route: IVP; Site: left antecubital; br2 22:00 Follow up: Response: No adverse reaction br2 21:37 Drug: NS 0.9% IV 1000 ml IV at 1 bolus Per protocol; to be given as a bolus over 60 br2 minutes Route: IV; Rate: 1 bolus; Site: left antecubital; 23:00 Follow up: Response: No adverse reaction; IV Status: Completed infusion; IV Intake: br2 1000ml 23:03 Drug: Ketorolac IVP 15 mg IVP once Route: IVP; Site: left antecubital; br2 23:30 Follow up: Response: No adverse reaction; Pain is decreased br2 Disposition Summary: 06/19/24 23:47 Discharge Ordered Notes: Location: Home sw6 Problem: an acute exacerbation sw6 Symptoms: have improved sw6 Condition: Stable sw6 Diagnosis - Migraine without aura, not intractable sw6 Discharge Instructions: - Discharge Summary Sheet 6 - Migraine Headache sw6 - Migraine Headache, [id number] sw6 Forms: - Medication Reconciliation Form sw6 - Antibiotic Education sw6 - Prescription Opioid Use sw6 - Patient Portal Instructions 6 - Leadership Thank You Letter 6 Signatures: Dispatcher [employer] Milly Tracey RN RN iw Williams, Sandra, MD MD sw6 Sweta Mukherjee, JUDY RN br2
[2024-06-20 00:31] VITALS: TEMP 98.2
[2024-06-20 00:33] VITALS: BP 117/76; O2SAT 99
== END 2024-06-20 00:18 | disposition home or self-care (01) ==
LOC: ER 19:29
DX: G43.009 Migraine without aura, not intractable, without status migrainosus (principal)
CPT/HCPCS: 96361; 70450; 96375; 96374; 99284; J2765; J1200; J1100; J7030